=== PATIENT | female | born 2000 | race Caucasian/White ===

== ENCOUNTER → 2018-06-06 | Outpatient (CLI) | payer OTHER ==
--- NOTE | 2018-06-06 16:25 | Diagnostic Imaging Report ---
INDICATION: Elevated d-dimer, chest pain. TECHNIQUE: Grayscale with color-flow and Doppler waveform evaluation of the bilateral lower extremity deep venous systems. CORRELATION STUDY: None FINDINGS: Color and grayscale sonographic images demonstrate no intraluminal defect within the visualized portion of the common femoral, superficial femoral and/or popliteal veins to suggest thrombus formation. These vessels demonstrate normal response to compression and augmentation. No soft tissue fluid collection. IMPRESSION: 1. Negative for deep venous thrombosis of either leg. Dictated by: Dictated on workstation # [id number]
== END ==
LOC: RAD 15:13
PROVIDERS: ATTEND Internal Medicine
DX: R07.9 Chest pain, unspecified (principal); R79.1 Abnormal coagulation profile
CPT/HCPCS: 93970

== ENCOUNTER → 2018-06-07 | Outpatient (CLI) | payer OTHER | LOC: CARD 13:16 | PROVIDERS: ATTEND Internal Medicine | DX: R07.9 Chest pain, unspecified (principal); R00.0 Tachycardia, unspecified | CPT/HCPCS: 93306 ==

== ENCOUNTER → 2018-10-26 | Outpatient (CLI) | payer OTHER ==
[~2018-10-26] MED LIST: IOHEXOL 350 MG/ML 150 ML (OMNIPAQUE 350) VIAL IV ONE; NS 250 ML (IVPB) BAG IV ONE; RECEIVED CONTRAST (Hold Metformin) IV SCH
--- NOTE | 2018-10-26 09:32 | Diagnostic Imaging Report ---
PROCEDURE: CT angiography of the chest with contrast. TECHNIQUE: Multiple contiguous axial images were obtained through the chest after uneventful bolus administration of intravenous contrast. 2D reconstructed CTA MIP acquisitions were also performed. INDICATION: Chest pain, low-grade fever, and elevated d-dimer. COMPARISON: CT from 05/24/2018. FINDINGS: There is good opacification of the pulmonary arterial system. The pulmonary system appears unremarkable. No thromboemboli are identified within the central, lobar, or segmental branches. The thoracic aorta is of normal caliber. No pericardial or pleural fluid is seen. No pulmonary infiltrates are present. No nodular mass is seen. No axillary, hilar, or mediastinal lymphadenopathy is detected. The upper abdomen is unremarkable. IMPRESSION: Unremarkable CT angiogram of the chest. There is no evidence of pulmonary embolism. Dictated by: Dictated on workstation # [id number]
== END ==
LOC: RAD 08:31
PROVIDERS: ATTEND Internal Medicine
DX: R07.9 Chest pain, unspecified (principal); R79.1 Abnormal coagulation profile; R50.9 Fever, unspecified
CPT/HCPCS: 71275

== ENCOUNTER → 2021-01-29 | Outpatient (CLI) | payer OTHER ==
--- NOTE | 2021-01-29 16:34 | Diagnostic Imaging Report ---
INDICATION: survey, patient. TECHNIQUE: Multiple real-time grayscale images were obtained over the gravid uterus. COMPARISON: None during this . FINDINGS: A single live intrauterine fetus is seen measuring 20 weeks 5 days by composite measurements with sonographic EDC of 06/13/2021. The fetus is in variable presentation. Placenta is anterior with no evidence of previa. Amniotic fluid index is 12.7 cm. heart rate is 158 bpm. Cervical length is 3.9 cm. Distance from the placental tip to the internal os was 3.7 cm. The maternal adnexa were not well seen but there was no free fluid. survey was unremarkable including normal appearance of the kidneys and bladder. Normal appearance of the stomach was visualized. Intracranial ventricles appear normal. Four-chamber heart view appeared normal. Three-vessel cord and cord insertion were normal. Views of the spine were normal. Biometrical measurements are as follows: Biparietal 4.93 cm, age 21 weeks 0 days. Head circumference 18.01 cm, age 20 weeks 4 days. Abdominal circumference 15.51 cm, age 20 weeks 5 days. Femur length 3.32 cm, age 20 weeks 3 days. Sonographic estimate age: 20 weeks 5 days. Sonographic estimated date of delivery: 06/13/2021. Estimated Weight: 361 gm (+/- 53 gm). LMP percentile: 69%. heart rate: 158 beats per minute. number: 1 of 1. IMPRESSION: Single live intrauterine fetus measuring 20 weeks 5 days in size. There were no detectable abnormalities. Dictated by: Dictated on workstation # [id number]
== END ==
LOC: RAD 15:15
PROVIDERS: ATTEND Nurse Practitioner Women's Health
DX: Z34.92 Encounter for supervision of normal pregnancy, unspecified, second trimester (principal); Z3A.20 20 weeks gestation of pregnancy
CPT/HCPCS: 76805

== ENCOUNTER 2021-06-10 18:55 | Inpatient (IN) | payer OTHER ==
[2021-06-10] VITALS (9 sets, daily range): BP systolic 99–115; BP diastolic 56–82
[~2021-06-10] VITALS: Ht 167.7 cm; Wt 67.4 kg
[2021-06-10] MEDS ORDERED: TERBUTALINE INJ 1 MG/ML (BRETHINE) AMP SC PRN (19:15)
[2021-06-10] MEDS ORDERED: LIDOCAINE/EPI 2% 1:200,00 (XYLOCAINE) 20 ML VIAL INJ PRN (19:15)
[2021-06-10] MEDS ORDERED: NS IV 1000 ML 1,000 ML IV SCH (19:15)
[2021-06-10] MEDS ORDERED: PREN-142 PO (19:57)
[2021-06-10 20:01] LABS: BILIRUBIN,URINE NEGATIVE (NEGATIVE); CLARITY,URINE CLEAR; COLOR,URINE YELLOW; GLUCOSE, URINE (UA) 2+ (NEGATIVE); KETONES,URINE NEGATIVE (NEGATIVE); LEUKOCYTE ESTERASE ,URINE 1+ (NEGATIVE); NITRITE,URINE NEGATIVE (NEGATIVE); PH,URINE 5.5 (5-9); PROTEIN,URINE NEGATIVE (NEGATIVE)
[2021-06-10 20:02] LABS: BASOPHILS % (AUTO) 0 % (0-10); EOSINOPHILS # (AUTO) 0.1 10^3/uL (0.0-0.3); EOSINOPHILS % (AUTO) 1 % (0-10); HEMATOCRIT 33 % (35-52); HEMOGLOBIN 11.4 g/dL (11.5-16.0); LYMPHOCYTES # (AUTO) 1.6 10^3/uL (1.0-4.0); LYMPHOCYTES % (AUTO) 22 % (12-44); MEAN CORPUSCULAR HEMOGLOBIN 30 pg (25-34); MEAN CORPUSCULAR HGB CONC 35 g/dL (32-36); MEAN CORPUSCULAR VOLUME 85 fL (80-99); MEAN PLATELET VOLUME 12.7 fL (9.0-12.2); MONOCYTES # (AUTO) 0.5 10^3/uL (0.0-1.0); MONOCYTES % (AUTO) 7 % (0-12); NEUTROPHILS # (AUTO) 5.2 10^3/uL (1.8-7.8); NEUTROPHILS % (AUTO) 70 % (42-75); PLATELET COUNT 152 10^3/uL (130-400); WHITE BLOOD COUNT 7.5 10^3/uL (4.3-11.0)
[2021-06-10 20:10] LABS: AMORPHOUS SEDIMENT,UR FEW AMOR URATES /LPF; BACTERIA,URINE FEW /HPF
[2021-06-10] MEDS: D5 LR IV SOLUTION 1,000 ML IV SCH (20:44)
[2021-06-10] MEDS: CATHETER FLUSH 10 ML SYR IV SCH (21:28)
[2021-06-11] VITALS (75 sets, daily range): BP systolic 89–130; BP diastolic 51–84
[2021-06-11] MEDS: D5 LR IV SOLUTION 1,000 ML IV SCH ×2 (04:41→11:55)
[2021-06-11] MEDS ORDERED: OXYTOCIN PRE-MIX DRIP 500 ML IV ONE (05:41)
[2021-06-11] MEDS: CATHETER FLUSH 10 ML SYR IV SCH (05:56)
[2021-06-11] MEDS ORDERED: OXYTOCIN PRE-MIX DRIP 500 ML IV SCH ×2 (06:15→19:00)
--- NOTE | 2021-06-11 07:46 | History & Physical-OB ---
OB - Chief Complaint & HPI Date/Time Date of Admission: Date of Admission: Jun 10, 2021 at 18:55 Date seen by a Provider: Jun 11, 2021 Time Seen by a Provider: 07:45 Chief Complaint/History OB-Reason for Admission/Chief: Induction of Labor Hx : 1 Hx Para: 0 Expected Date of Delivery: Jun 17, 2021 Gestational Age in Weeks: 39 Gestational Age in Days: 0 Other reason for admission: Elective Admission Nurse Assessment Rev: Yes History of Labs O pos Antibody neg RI RPR NR HBsAg NR HIV NR GC neg GBS neg Allergies and Home Medications Allergies Coded Allergies: Sulfa (Sulfonamide Antibiotics) (Verified Allergy, Mild, Hives, 06/10/21) Home Medications Vit No.124/Iron/FA 1 Each Tablet, 1 EACH PO DAILY, (Reported) Last Action: New Order Patient Home Medication List Home Medication List Reviewed: Yes OB - History Hx of Present Care: Yes Ultrasounds: Normal mid trimester US Obstetrical Complications: None Medical Complications: None Patient Past Medical History n/a Immunizations Hepatitis A: No Hepatitis B: No OB - Admission Exam Physical Exam Vitals: Vital Signs 06/11/21 06/11/21 06:00 07:00 Temp 36.7 Pulse 71 Resp 18 B/P (MAP) 109/75 (86) Pulse Ox 99 O2 Delivery Room Air HEENT: NCAT Heart: Rhythm Normal Lungs: Clear Abdomen: Gravid Extremities: Normal Reflexes: Normal Cervical Dilatation: 2cm Effacement: 75% Station: -1 Membranes: Intact Heart Rate: 130's Accelerations: Accelerations Present Decelerations: No Decelerations Short Term Variability: Present Usp Variability: Average (6-25) Contractions on Admission: 6-10 Minutes Apart Intensity: Mild Alvarez Scoring Tool (Modified) Dilation (cm): 1-2cm (1) Effacement (%): 51-79% (2) Descent/Station: -1,0 (2) Cervix Consistency: Soft (2) Cervix Position: Anterior (2) Subtract 1 point for: Nulliparity (-1) Alvarez Score: 8 Labs Laboratory Tests Test 06/10/21 19:40 Range/Units White Blood Count 7.5 4.3-11.0 10^3/uL Red Blood Count 3.87 3.80-5.11 10^6/uL Hemoglobin 11.4 L 11.5-16.0 g/dL Hematocrit 33 L 35-52 % Mean Corpuscular Volume 85 80-99 fL Mean Corpuscular Hemoglobin 30 25-34 pg Mean Corpuscular Hemoglobin Concent 35 32-36 g/dL Red Cell Distribution Width 11.9 10.0-14.5 % Platelet Count 152 130-400 10^3/uL Mean Platelet Volume 12.7 H 9.0-12.2 fL Immature Granulocyte % (Auto) 1 % Neutrophils (%) (Auto) 70 42-75 % Lymphocytes (%) (Auto) 22 12-44 % Monocytes (%) (Auto) 7 0-12 % Eosinophils (%) (Auto) 1 0-10 % Basophils (%) (Auto) 0 0-10 % Neutrophils # (Auto) 5.2 1.8-7.8 10^3/uL Lymphocytes # (Auto) 1.6 1.0-4.0 10^3/uL Monocytes # (Auto) 0.5 0.0-1.0 10^3/uL Eosinophils # (Auto) 0.1 0.0-0.3 10^3/uL Basophils # (Auto) 0.0 0.0-0.1 10^3/uL Immature Granulocyte # (Auto) 0.1 0.0-0.1 10^3/uL Urine Color YELLOW Urine Clarity CLEAR Urine pH 5.5 5-9 Urine Specific [place] 1.020 1.016-1.022 Urine Protein NEGATIVE NEGATIVE Urine Glucose (UA) 2+ H NEGATIVE Urine Ketones NEGATIVE NEGATIVE Urine Nitrite NEGATIVE NEGATIVE Urine Bilirubin NEGATIVE NEGATIVE Urine Urobilinogen 0.2 < = 1.0 MG/DL Urine Leukocyte Esterase 1+ H NEGATIVE Urine RBC (Auto) NEGATIVE NEGATIVE Urine RBC NONE /HPF Urine WBC 5-10 H /HPF Urine Crystals PRESENT H /LPF Urine Amorphous Sediment FEW SVEN URATES H /LPF Urine Bacteria FEW H /HPF Urine Casts NONE /LPF Urine Mucus SMALL H /LPF Urine Culture Indicated YES OB - Assessment/Plan/Diagnosis Assessment Assessment: induction of labor Admission Dx 21 yo @ 39 weeks Elective IOL GBS neg Admission Status: Inpatient Order (span 2 midnights) Reason for Inpatient Admission: IOL at 39 weeks Plan Plan: Induction Induction Method: per Misoprostol Protocol GLORY BORGES DO Jun 11, 2021 07:46
[2021-06-11] MEDS ORDERED: LACTATED RINGERS 1,000 ML IV SCH (11:15)
[2021-06-11] MEDS ORDERED: fentaNYL 2 mcg/ml BUPIVA 0.125 100 ML ONE (11:27)
[2021-06-11] MEDS ORDERED: BUPIVACAINE 0.25% 30 ML (SENSORCAINE) VIAL ONE (11:58)
[2021-06-11] MEDS ORDERED: fentaNYL INJ 100 MCG/2 ML AMP ONE (11:58)
[2021-06-11] MEDS ORDERED: NALOXONE 0.4 MG/ML 1 ML (NARCAN) VIAL IV PRN (12:00)
[2021-06-11] MEDS ORDERED: fentaNYL 2 mcg/ml BUPIVA 0.125 100 ML IV SCH (12:00)
[2021-06-11] MEDS ORDERED: LACTATED RINGERS 1,000 ML IV ONE (12:00)
[2021-06-11] MEDS ORDERED: CATHETER FLUSH 10 ML SYR IV PRN (12:00)
[2021-06-11] MEDS ORDERED: LIDOCAINE/EPI 2% 1:200,00 (XYLOCAINE) 20 ML VIAL ONE (16:51)
[2021-06-11] MEDS ORDERED: TETANUS,DIPTH,PERTUSS P/F (BOOSTRIX) 0.5 ML VIAL IM ONE (19:00)
[2021-06-11] MEDS ORDERED: MEASLES,MUMPS,RUBELLA 1 EA INJ SQ ONE (19:00)
[2021-06-11] MEDS ORDERED: DIBUCAINE 1% OINTMENT 30 GM TUBE TOP PRN (19:00)
[2021-06-11] MEDS ORDERED: WITCH HAZEL(TUCKS) 40 EA JAR TOP PRN (19:00)
[2021-06-11] MEDS ORDERED: BENZOCAINE/MENTHOL (DERMOPLAST) 56 ML CAN TP PRN (19:00)
[2021-06-11] MEDS ORDERED: HYDROcodone/APAP 5 MG/325 MG (LORTAB) TAB PO PRN (19:00)
--- NOTE | 2021-06-11 19:34 | Discharge Inst-Women's Service ---
Discharge Inst-Women's Serv Depart Medication/Instructions New, Converted or Re-Newed RX: RX on Chart Final Diagnosis PPD 1 VAVD Problems Reviewed?: Yes Consults/Follow Up Additional Follow Up: Yes Orders/Referrals Dr. Borges in 6 weeks Activity Activity: Activity as Tolerated Driving Instructions: No Driving for 1 Week NO SMOKING: NO SMOKING Nothing Inside Vagina: No Douching, No [place], No Tampons Diet Discharge Diet: No Restrictions Symptoms to Report to : Bleeding Excessive, Pain Increased, Fever Over 101 Degrees F, Vaginal Bleeding Increase, Questions/Concerns For Any Problems or Questions: Contact Your Physician GLORY BORGES DO Jun 11, 2021 19:34
--- NOTE | 2021-06-11 19:34 | OB Labor & Delivery Record ---
L&D History Date of Service Date of Service: Jun 11, 2021 History Expected Date of Delivery: Jun 17, 2021 Gestational Age in Weeks: 39 Hx : 1 Hx Para: 0 Complications Events: Routine care Operative Indications (Cesarea: N/A-Vaginal Delivery Intrapartal Events: None L&D Stage1 Stage One Onset of Labor - Date: Jun 11, 2021 Monitors and Tracing Monitor Mode: External Heart Rate: 130 Station: 0 Usp Variability: Average (6-10) Short Term Variability: Present Presentation: Vertex Vital Signs VS - Last 72 Hours, by Label 06/10/21 06/10/21 06/10/21 06/10/21 19:47 19:47 20:07 20:37 Temp 36.8 36.8 Pulse 98 98 96 76 Resp 18 18 18 18 B/P (MAP) 114/75 (88) 114/76 (89) 114/82 (93) Pulse Ox 97 97 O2 Delivery Room Air Room Air Room Air Room Air 06/10/21 06/10/21 06/10/21 06/10/21 21:07 21:37 22:07 22:37 Pulse 81 84 78 78 Resp 18 18 18 18 B/P (MAP) 108/75 (86) 115/77 (90) 110/76 (87) 99/56 (70) O2 Delivery Room Air Room Air Room Air Room Air 06/10/21 06/10/21 06/11/21 06/11/21 22:53 23:53 01:05 01:54 Temp 36.1 Pulse 81 75 78 77 Resp 18 18 18 18 B/P (MAP) 100/63 (75) 109/73 (85) 111/75 (87) 116/79 (91) O2 Delivery Room Air Room Air Room Air Room Air 06/11/21 06/11/21 06/11/21 06/11/21 02:57 03:53 04:47 05:47 Temp 36.1 Pulse 74 78 76 73 Resp 18 18 18 18 B/P (MAP) 89/51 (64) 112/81 (91) 113/76 (88) 111/78 (89) O2 Delivery Room Air Room Air Room Air Room Air 06/11/21 06/11/21 06/11/21 06/11/21 06:00 06:15 06:30 06:45 Temp 36.7 Pulse 72 68 83 92 Resp 18 18 18 18 B/P (MAP) 118/81 (93) 118/77 (91) 111/72 (85) 107/72 (84) O2 Delivery Room Air Room Air Room Air Room Air 06/11/21 06/11/21 06/11/21 06/11/21 07:00 07:15 07:30 07:45 Temp 36.7 Pulse 71 81 67 79 Resp 18 18 18 18 B/P (MAP) 109/75 (86) 115/79 (91) 122/82 (95) 115/80 (92) Pulse Ox 99 100 100 100 O2 Delivery Room Air Room Air Room Air Room Air 06/11/21 06/11/21 06/11/21 06/11/21 08:00 08:15 08:30 08:45 Pulse 87 82 72 71 Resp 18 18 18 18 B/P (MAP) 125/79 (94) 117/81 (93) 116/78 (91) 116/80 (92) Pulse Ox 98 100 98 98 O2 Delivery Room Air Room Air Room Air Room Air 06/11/21 06/11/21 06/11/21 06/11/21 09:00 09:15 09:30 09:45 Temp 36.9 Pulse 79 80 80 75 Resp 18 18 18 18 B/P (MAP) 116/80 (92) 116/82 (93) 120/81 (94) 109/75 (86) Pulse Ox 97 96 97 97 O2 Delivery Room Air Room Air Room Air Room Air 06/11/21 06/11/21 06/11/21 06/11/21 10:00 10:15 10:30 10:45 Pulse 75 77 79 95 Resp 18 18 18 18 B/P (MAP) 110/77 (88) 118/80 (93) 116/74 (88) 118/84 (95) Pulse Ox 96 97 98 99 O2 Delivery Room Air Room Air Room Air Room Air 06/11/21 06/11/21 06/11/21 06/11/21 11:00 11:15 11:30 11:45 Pulse 71 75 76 70 Resp 18 18 18 18 B/P (MAP) 119/79 (92) 116/70 (85) 123/78 (93) 114/75 (88) Pulse Ox 100 100 100 100 O2 Delivery Room Air Room Air Room Air Room Air 06/11/21 06/11/21 06/11/21 06/11/21 12:00 12:15 12:20 12:23 Pulse 71 77 80 83 Resp 18 18 18 18 B/P (MAP) 116/73 (87) 116/75 (89) 108/71 (83) 103/67 (79) Pulse Ox 100 100 100 100 O2 Delivery Room Air Room Air Room Air Room Air 06/11/21 06/11/21 06/11/21 06/11/21 12:26 12:30 12:34 12:37 Pulse 79 77 77 80 Resp 18 18 18 18 B/P (MAP) 103/65 (78) 107/62 (77) 108/64 (79) 109/63 (78) Pulse Ox 100 100 100 100 O2 Delivery Room Air Room Air Room Air Room Air 06/11/21 12:40 Pulse 77 Resp 18 B/P (MAP) 115/69 (84) Pulse Ox 100 O2 Delivery Room Air Rupture of Membranes Spontaneous Ruture of Membrane: No Amniotic Membrane Rupture Time: 804 Amniotic Membrane Fluid Desc.: Clear Vaginal Bleeding Description: Normal Show Progress/Notes Patient admitted last night for cervical ripening, misoprostol given 100 mcg x 1 dose, and contractions began to become regular. She had AROM performed this AM followed by pitocin augmentation and an epidural was placed. She progressed to complete and +2 station. L&D Stage2 Stage Two Stage II Date: Jun 11, 2021 Monitors and Tracing Monitor Mode: External Heart Rate: 130 Monitor Accelerations: Uniform Monitor Decelerations: Variable Building Insulation Supervisor Variability: Average (6-10) Short Term Variability: Present Position: Right Occiput Anterior Presentation: Vertex Signs of Distress by FHT Signs of Distress Due to heart rate decision was for for Low vacuum extraction. Cord Descript/Complications Cord Vessel Description: 3 Vessels Complications Kiwi was applied with gentle extension pop off occurred and mother was able to progress delivery from there. Delivery Type Delivery Method: Spontaneous Vaginal Anterior Shoulder: Left Episiotomy/Perineal Laceration Laceraction(s)/Extensions: Yes Episiotomy Description: Midline Degree (describe repair) midline episiotomy repaired using 3-0 and 2-0 vicryl suture in usual fashion. Condition of Infant Delivery 1 minute Comment: 9 5 minute Comment: 9 Notes weight 8lbs 3 oz live male Condition of Infant Condition of : Living Exam: No Observed Abnormalities Resuscitation Resuscitation: N/A - Spontaneous Resp L&D Stage3 Stage Three Stage III Date: Jun 11, 2021 Pictocin Pitocin Administration mu/min: 4 Pitocin ml/hr: 4 Pitocin Administration Comment: 30 mu wide open after delivery of placenta Placenta Delivery Placenta Delivery: Spontaneous Delivery Summary Summary Estimated blood loss (mL): 350 Attending at delivery: Glory Borges DO Condition of Delivery Examined: Cervix Examined, Uterus Explored Post Hemorrhage: No Condition of Mother stable Condition of Infant (s) stable GLORY BORGES DO Jun 11, 2021 19:34
[2021-06-11] MEDS ORDERED: BENZ78AE5 TP (19:36)
[2021-06-11] MEDS ORDERED: DCS100C PO (19:36)
[2021-06-11] MEDS ORDERED: DIBU30OI TOP (19:36)
[2021-06-11] MEDS ORDERED: ACHD5005 PO (19:36)
[2021-06-11] MEDS ORDERED: IBUP-844 PO (19:36)
[2021-06-11] MEDS ORDERED: FERR325T24 PO (19:36)
[2021-06-11] MEDS ORDERED: CATHETER FLUSH 10 ML SYR IV SCH (22:00)
[2021-06-11] MEDS: DOCUSATE SODIUM 100 MG (COLACE) CAP PO SCH (23:09)
[2021-06-11] MEDS: IBUPROFEN 600 MG (MOTRIN) TAB PO SCH (23:10)
[2021-06-12 04:10] VITALS: BP 100/67
[2021-06-12 06:11] LABS: BASOPHILS % (AUTO) 0 % (0-10); EOSINOPHILS # (AUTO) 0.1 10^3/uL (0.0-0.3); EOSINOPHILS % (AUTO) 1 % (0-10); HEMATOCRIT 34 % (35-52); HEMOGLOBIN 11.3 g/dL (11.5-16.0); LYMPHOCYTES # (AUTO) 1.3 10^3/uL (1.0-4.0); LYMPHOCYTES % (AUTO) 11 % (12-44); MEAN CORPUSCULAR HEMOGLOBIN 29 pg (25-34); MEAN CORPUSCULAR HGB CONC 33 g/dL (32-36); MEAN CORPUSCULAR VOLUME 88 fL (80-99); MEAN PLATELET VOLUME 12.4 fL (9.0-12.2); MONOCYTES # (AUTO) 0.8 10^3/uL (0.0-1.0); MONOCYTES % (AUTO) 7 % (0-12); NEUTROPHILS # (AUTO) 10.2 10^3/uL (1.8-7.8); NEUTROPHILS % (AUTO) 81 % (42-75); PLATELET COUNT 135 10^3/uL (130-400); WHITE BLOOD COUNT 12.6 10^3/uL (4.3-11.0)
[2021-06-12] MEDS ORDERED: PRENATAL VITAMIN 1 EA TAB PO SCH (07:00)
[2021-06-12] MEDS ORDERED: FERROUS SULF 325 MG (IRON) TAB PO SCH (09:00)
[2021-06-12] MEDS: DOCUSATE SODIUM 100 MG (COLACE) CAP PO SCH ×2 (09:07→23:27)
[2021-06-12 12:00] VITALS: BP 112/70
[2021-06-12] MEDS: IBUPROFEN 600 MG (MOTRIN) TAB PO SCH ×2 (12:09→23:27)
[2021-06-12 16:30] VITALS: BP 115/75
--- NOTE | 2021-06-12 17:35 | Postpartum Progress Note ---
Note Note Day # 1 Subjective: Patient is without complaints. Ambulating, voiding. Tolerating a regular diet without nausea or vomiting. Normal lochia. Pain is well controlled with oral pain medications. Objective: Physical Exam: General - Alert and oriented, no apparent distress Abdomen - Soft, appropriately tender to palpation, non-distended, fundus firm at umbilicus Extremities - no edema, negative Eduarda's bilaterally Assessment: post- day # 1, status post vaginal delivery. Recovering well, hemodynamically stable Plan: Routine care. Encourage breast feeding. Encourage ambulation. Ferrous sulfate supplementation. Plan for discharge tomorrow Vitals - Labs Vital Signs - I&O Vital Signs Date Time Temp Pulse Resp B/P (MAP) Pulse Ox O2 Delivery O2 Flow Rate FiO2 06/12/21 04:10 37.0 74 16 100/67 (78) Room Air 06/11/21 23:30 36.9 79 16 104/64 (77) Room Air 06/11/21 21:15 37.1 86 16 106/70 (82) Room Air 06/11/21 20:00 101 16 106/62 (77) Room Air 06/11/21 19:45 37.3 96 18 113/61 (78) Room Air 06/11/21 19:30 93 18 104/62 (76) Room Air 06/11/21 19:13 84 18 110/63 (79) Room Air 06/11/21 18:58 79 18 130/72 (91) Room Air 06/11/21 18:43 86 18 126/76 (93) Room Air 06/11/21 18:28 37.0 82 18 125/78 (94) Room Air 06/11/21 18:13 94 18 126/73 (90) Room Air 06/11/21 17:58 92 18 119/64 (82) Room Air 06/11/21 17:41 96 20 130/69 (89) Non Rebreather 15.00 I & O 06/12/21 07:00 Intake Total 3000 ml Output Total 1300 ml Balance 1700 ml Labs Laboratory Tests 06/12/21 05:52: White Blood Count 12.6H, Red Blood Count 3.85, Hemoglobin 11.3L, Hematocrit 34L, Mean Corpuscular Volume 88, Mean Corpuscular Hemoglobin 29, Mean Corpuscular Hemoglobin Concent 33, Red Cell Distribution Width 12.3, Platelet Count 135, Mean Platelet Volume 12.4H, Immature Granulocyte % (Auto) 1, Neutrophils (%) (Auto) 81H, Lymphocytes (%) (Auto) 11L, Monocytes (%) (Auto) 7, Eosinophils (%) (Auto) 1, Basophils (%) (Auto) 0, Neutrophils # (Auto) 10.2H, Lymphocytes # (Auto) 1.3, Monocytes # (Auto) 0.8, Eosinophils # (Auto) 0.1, Basophils # (Auto) 0.0, Immature Granulocyte # (Auto) 0.1 Microbiology 06/10/21 Urine Culture - Final, Complete Lactobacillus species CHRISTI ARNOLD MED STUDENT Jun 12, 2021 17:35
[2021-06-12 20:00] VITALS: BP 112/73
[2021-06-13 01:30] VITALS: BP 96/62
[2021-06-13 08:37] VITALS: BP 108/70
--- NOTE | 2021-06-13 10:09 | Postpartum Progress Note ---
Note Note Day # 2 Subjective: Patient is without complaints. Ambulating, voiding. Tolerating a regular diet without nausea or vomiting. Normal lochia. Pain is well controlled with oral pain medications. Objective: Physical Exam: General - Alert and oriented, no apparent distress Abdomen - Soft, appropriately tender to palpation, non-distended, fundus firm at umbilicus Extremities - no edema, negative Eduarda's bilaterally Assessment: PPD 2 NVD Anemia of Plan: Routine care. Encourage breast feeding. Encourage ambulation. Ferrous sulfate supplementation. Plan for discharge today Vitals - Labs Vital Signs - I&O Vital Signs Date Time Temp Pulse Resp B/P (MAP) Pulse Ox O2 Delivery O2 Flow Rate FiO2 06/13/21 01:30 36.3 85 18 96/62 (73) 98 06/12/21 20:00 36.6 80 18 112/73 (86) 100 06/12/21 16:30 36.8 83 16 115/75 (88) 99 Room Air 06/12/21 12:00 36.9 93 16 112/70 (84) 100 Room Air Labs Microbiology 06/10/21 Urine Culture - Final, Complete Lactobacillus species GLORY BORGES DO Jun 13, 2021 10:09
--- NOTE | 2021-06-13 13:12 | Anesthesia-Regional Post-Op ---
Regional Patient Condition Mental Status: Alert, Oriented x3 Circulation: Same as Pre-Op Headache: Absent Sensation: Full Recovery Motor Block: Absent Post Op Complications Complications None Follow Up Care/Instructions Patient Instructions None needed. Anesthesia/Patient Condition Patient is doing well, no complaints, stable vital signs, no apparent adverse anesthesia problems. No complications reported per nursing. GENEVIEVE BENITEZ CRNA Jun 13, 2021 13:12
== END 2021-06-13 13:20 | disposition home or self-care (01) | DRG 807 ==
LOC: LDRP 18:55
PROVIDERS: ADMIT Obstetrics & Gynecology; ATTEND Obstetrics & Gynecology
PROC: 10E0XZZ Delivery of Products of Conception, External Approach (ICD-10-PCS; principal; 2021-06-11)
PROC: 0W8NXZZ Division of Female Perineum, External Approach (ICD-10-PCS; 2021-06-11)
PROC: 3E0DXGC Introduction of Other Therapeutic Substance into Mouth and Pharynx, External Approach (ICD-10-PCS; 2021-06-11)
DX: O99.02 Anemia complicating childbirth (principal); Z37.0 Single live birth; D64.9 Anemia, unspecified; Z3A.39 39 weeks gestation of pregnancy; Z88.2 Allergy status to sulfonamides
CPT/HCPCS: 36415; 81000; 85025; 86850; 86900; 86901; 87088

== ENCOUNTER → 2022-12-22 | Outpatient (CLI) | payer OTHER ==
[~2022-12-22] MED LIST changes: +ACHD5005 PO; +BENZ78AE5 TP; +DIBU30OI TOP; +DOCU-239 PO; +FERR325T24 PO; +IBUP-844 PO; -IOHEXOL 350 MG/ML 150 ML (OMNIPAQUE 350) VIAL IV ONE; -NS 250 ML (IVPB) BAG IV ONE; +PREN-142 PO; -RECEIVED CONTRAST (Hold Metformin) IV SCH
--- NOTE | 2022-12-22 13:11 | Diagnostic Imaging Report ---
INDICATION: Routine care. TECHNIQUE: Multiple real-time grayscale images were obtained over the gravid uterus. COMPARISON: None FINDINGS: There is a single live fetus in a transverse presentation head to maternal right. heart rate was recorded at 155 bpm. Placenta is posterior and slightly low lying in position with the tip approximately 3 cm from the internal os. Amniotic fluid index is 10.1 cm. Cervical length is 7.0 cm. kidneys, bladder and stomach are unremarkable. brain is unremarkable. There is a four-chamber heart. There is a three-vessel cord with normal insertion. spine is unremarkable. Biometrical measurements are as follows: Biparietal 4.61 cm, age 20 weeks 0 days. Head circumference 17.52 cm, age 20 weeks 1 days. Abdominal circumference 14.10 cm, age 19 weeks 4 days. Femur length 3.03 cm, age 19 weeks 3 days. Sonographic estimate age: 19 weeks 6 days. Sonographic estimated date of delivery: 05/12/2023. Estimated Weight: 296 gm (+/- 43 gm). LMP percentile: 15%. heart rate: 155 beats per minute. number: 1 of 1. IMPRESSION: Single live IUP 19 weeks 6 days gestational age. Estimated date of confinement sonographically is 05/12/2023. Dictated by: Dictated on workstation # [id number]
== END ==
LOC: RAD 09:51
PROVIDERS: ATTEND Nurse Practitioner Women's Health
DX: Z34.02 Encounter for supervision of normal first pregnancy, second trimester (principal); Z3A.19 19 weeks gestation of pregnancy
CPT/HCPCS: 76805

== ENCOUNTER 2023-04-29 15:41 | Outpatient (CLI) | payer OTHER ==
[~2023-04-29] VITALS: Ht 167.5 cm; Wt 67.9 kg
[2023-04-29 16:07] VITALS: BP 130/80
[2023-04-29 16:20] LABS: BILIRUBIN,URINE NEGATIVE (NEGATIVE); CLARITY,URINE CLEAR; COLOR,URINE YELLOW; GLUCOSE, URINE (UA) TRACE (NEGATIVE); KETONES,URINE NEGATIVE (NEGATIVE); LEUKOCYTE ESTERASE ,URINE 1+ (NEGATIVE); NITRITE,URINE NEGATIVE (NEGATIVE); PH,URINE 6.5 (5-9); PROTEIN,URINE NEGATIVE (NEGATIVE)
[2023-04-29 16:33] LABS: BACTERIA,URINE TRACE /HPF
[2023-04-29 17:02] VITALS: BP 130/80
[2023-04-29 17:07] VITALS: BP 113/72
[2023-04-29 18:55] VITALS: BP 113/72
--- NOTE | 2023-05-01 08:36 | Physician Query-Final Dx ---
CINTHIA,05/01/23 0836: Clinic Account Progress/Dx Physician Query: Please give diagnosis Please include # weeks gestation Date of Service Apr 29, 2023 at 15:41 GLORY BORGES DO 05/01/23 1058: Clinic Account Progress/Dx DIAGNOSIS: Diagnosis 38 week IUP Irregular contractions CINTHIA,NovMay 01, 2023 08:36 GLORY BORGES DO May 01, 2023 10:58
== END 2023-04-29 18:55 | disposition home or self-care (01) ==
LOC: WSo 15:41 → LDRP 15:43 → WSo 18:55
PROVIDERS: ATTEND Obstetrics & Gynecology
DX: O62.9 Abnormality of forces of labor, unspecified (principal); Z3A.38 38 weeks gestation of pregnancy
CPT/HCPCS: 81000; 87088; 99213

== ENCOUNTER 2023-05-05 00:01 | Inpatient (IN) | payer OTHER ==
[~2023-05-05] VITALS: Ht 167 cm; Wt 66.9 kg
[2023-05-05] VITALS (55 sets, daily range): BP systolic 100–128; BP diastolic 55–91
[2023-05-05 01:48] LABS: CLARITY,URINE CLEAR; COLOR,URINE YELLOW; PROTEIN,URINE NEGATIVE (NEGATIVE)
[2023-05-05 01:49] LABS: BACTERIA,URINE NEGATIVE /HPF; BILIRUBIN,URINE NEGATIVE (NEGATIVE); GLUCOSE, URINE (UA) NEGATIVE (NEGATIVE); KETONES,URINE NEGATIVE (NEGATIVE); LEUKOCYTE ESTERASE ,URINE 1+ (NEGATIVE); NITRITE,URINE NEGATIVE (NEGATIVE); WBC,URINE 0-2 /HPF
[2023-05-05] MEDS ORDERED: D5 LR IV SOLUTION 1,000 ML IV ONE (02:11)
[2023-05-05] MEDS: D5 LR IV SOLUTION 1,000 ML IV SCH ×2 (02:27→09:50)
[2023-05-05 02:52] LABS: BASOPHILS % (AUTO) 0 % (0-10); EOSINOPHILS # (AUTO) 0.1 10^3/uL (0.0-0.3); EOSINOPHILS % (AUTO) 1 % (0-10); HEMATOCRIT 35 % (35-52); LYMPHOCYTES # (AUTO) 2.2 10^3/uL (1.0-4.0); LYMPHOCYTES % (AUTO) 22 % (12-44); MEAN CORPUSCULAR HEMOGLOBIN 28 pg (25-34); MEAN CORPUSCULAR HGB CONC 34 g/dL (32-36); MEAN CORPUSCULAR VOLUME 83 fL (80-99); MEAN PLATELET VOLUME 11.7 fL (9.0-12.2); MONOCYTES # (AUTO) 0.7 10^3/uL (0.0-1.0); MONOCYTES % (AUTO) 7 % (0-12); NEUTROPHILS # (AUTO) 6.9 10^3/uL (1.8-7.8); NEUTROPHILS % (AUTO) 69 % (42-75); PLATELET COUNT 146 10^3/uL (130-400)
--- NOTE | 2023-05-05 07:36 | History & Physical-OB ---
OB - Chief Complaint & HPI Date/Time Date of Admission: Date of Admission: May 05, 2023 at 01:55 Date seen by a Provider: May 05, 2023 Time Seen by a Provider: 07:30 Chief Complaint/History OB-Reason for Admission/Chief: Onset of Labor Hx : 2 Hx Para: 1 Expected Date of Delivery: May 10, 2023 Gestational Age in Weeks: 39 Gestational Age in Days: 2 Admission Nurse Assessment Rev: Yes History of Labs O pos Antibody neg RI RPR NR HBsAg NR GC neg GBS neg Allergies and Home Medications Allergies Coded Allergies: Sulfa (Sulfonamide Antibiotics) (Verified Allergy, Mild, Hives, 06/10/21) Patient Home Medication List Home Medication List Reviewed: Yes Vit No.124/Iron/FA ( Vitamin Tablet) 1 Each Tablet, 1 EACH PO DAILY, (Reported) Entered as Reported by: FLORENCIA BEARD on 06/10/211956 Discontinued Medications Benzocaine/Menthol (Dermoplast Pain Relieving [place]) 78 Gm Aerosol, 0 EA TP UD PRN for PAIN- SEE INSTRUCTIONS Discontinued Reason: No Longer Taking Prescribed by: GLORY BORGES on 06/11/211935 Dibucaine (Dibucaine) 30 Gm Oint, 0 GM TOP UD PRN for PAIN- SEE INSTRUCTIONS Discontinued Reason: No Longer Taking Prescribed by: GLORY BORGES on 06/11/211935 Docusate Sodium (Dok) 100 Mg Capsule, 100 MG PO BID PRN for CONSTIPATION-1ST LINE Discontinued Reason: No Longer Taking Prescribed by: GLORY BORGES on 06/11/211935 Ferrous Sulfate (Ferosul) 325 Mg Tablet, 325 MG PO DAILY Discontinued Reason: No Longer Taking Prescribed by: GLORY BORGES on 06/11/211935 Hydrocodone Bit/Acetaminophen (HYDROcodone/APAP 5 MG/325 MG TAB) 1 Tab Tab, 1 EA PO Q4H PRN for PAIN-MODERATE (5-7) Discontinued Reason: No Longer Taking Prescribed by: GLORY BORGES on 06/11/211935 Ibuprofen (Ibu) 600 Mg Tablet, 600 MG PO Q6H Discontinued Reason: No Longer Taking Prescribed by: GLORY BORGES on 06/11/211935 OB - History Hx of Present Care: Yes Ultrasounds: Normal mid trimester US Obstetrical Complications: None Medical Complications: None Obstetrical History Hx : 2 Hx Para: 1 Patient Past Medical History n/a Social History/Family History Alcohol Use: Denies Use Recreational Drug Use: No 2nd Hand Smoke Exposure: No Immunizations Hepatitis A: No Hepatitis B: No OB - Admission Exam Physical Exam Vitals: Vital Signs 05/05/23 04:37 Temp 36.6 Pulse 81 Resp 17 B/P (MAP) 118/70 (86) Pulse Ox 98 O2 Delivery Room Air HEENT: NCAT Heart: Rhythm Normal Lungs: Clear Abdomen: Gravid Extremities: Normal Reflexes: Normal Cervical Dilatation: 4cm Effacement: 100% Station: 0 Membranes: Intact Heart Rate: 130's Accelerations: Accelerations Present Decelerations: No Decelerations Short Term Variability: Present Marketing Support Specialist Variability: Average (6-25) Contractions on Admission: 6-10 Minutes Apart Intensity: Firm Labs Laboratory Tests Test 05/05/23 00:15 05/05/23 02:30 Range/Units Urine Color YELLOW Urine Clarity CLEAR Urine pH 6.0 5-9 Urine Specific [place] 1.010 L 1.016-1.022 Urine Protein NEGATIVE NEGATIVE Urine Glucose (UA) NEGATIVE NEGATIVE Urine Ketones NEGATIVE NEGATIVE Urine Nitrite NEGATIVE NEGATIVE Urine Bilirubin NEGATIVE NEGATIVE Urine Urobilinogen 0.2 < = 1.0 MG/DL Urine Leukocyte Esterase 1+ H NEGATIVE Urine RBC (Auto) NEGATIVE NEGATIVE Urine RBC NONE /HPF Urine WBC 0-2 /HPF Urine Crystals NONE /LPF Urine Bacteria NEGATIVE /HPF Urine Casts NONE /LPF Urine Mucus NEGATIVE /LPF Urine Culture Indicated NO White Blood Count 10.0 4.3-11.0 10^3/uL Red Blood Count 4.22 3.80-5.11 10^6/uL Hemoglobin 12.0 11.5-16.0 g/dL Hematocrit 35 35-52 % Mean Corpuscular Volume 83 80-99 fL Mean Corpuscular Hemoglobin 28 25-34 pg Mean Corpuscular Hemoglobin Concent 34 32-36 g/dL Red Cell Distribution Width 12.6 10.0-14.5 % Platelet Count 146 130-400 10^3/uL Mean Platelet Volume 11.7 9.0-12.2 fL Immature Granulocyte % (Auto) 1 % Neutrophils (%) (Auto) 69 42-75 % Lymphocytes (%) (Auto) 22 12-44 % Monocytes (%) (Auto) 7 0-12 % Eosinophils (%) (Auto) 1 0-10 % Basophils (%) (Auto) 0 0-10 % Neutrophils # (Auto) 6.9 1.8-7.8 10^3/uL Lymphocytes # (Auto) 2.2 1.0-4.0 10^3/uL Monocytes # (Auto) 0.7 0.0-1.0 10^3/uL Eosinophils # (Auto) 0.1 0.0-0.3 10^3/uL Basophils # (Auto) 0.0 0.0-0.1 10^3/uL Immature Granulocyte # (Auto) 0.1 0.0-0.1 10^3/uL Syphilis Total Antibody Negative Negative OB - Assessment/Plan/Diagnosis Assessment Assessment: active labor Admission Dx 23 yo @ 39 weeks Active labor GBS neg Admission Status: Inpatient Order (span 2 midnights) Reason for Inpatient Admission: 23 yo @ 39 weeks Active labor GBS neg Plan Plan: Expectant Management GLORY BORGES DO May 05, 2023 07:36
[2023-05-05] MEDS ORDERED: OXYTOCIN PRE-MIX DRIP 500 ML IV SCH ×2 (07:45→15:00)
[2023-05-05] MEDS ORDERED: fentaNYL 2 mcg/ml BUPIVA 0.125 100 ML ONE (08:00)
[2023-05-05] MEDS ORDERED: LACTATED RINGERS 1,000 ML IV ONE (08:00)
[2023-05-05] MEDS ORDERED: ONDANSETRON 4 MG/2 ML (SDV) Z0FRAN IV PRN (10:00)
[2023-05-05] MEDS ORDERED: METOCLOPRAMIDE INJ 10 MG/2 ML (REGLAN) IV PRN (10:00)
[2023-05-05] MEDS ORDERED: fentaNYL 2 mcg/ml BUPIVA 0.125 100 ML EPI SCH (10:00)
[2023-05-05] MEDS ORDERED: diphenhydrAMINE 50 MG/ML INJ (BENADRYL) IV PRN (10:00)
[2023-05-05] MEDS ORDERED: NALOXONE 0.4 MG/ML 1 ML (NARCAN) VIAL IV PRN ×3 (10:00→15:00)
[2023-05-05] MEDS ORDERED: LACTATED RINGERS 1,000 ML IV SCH (10:00)
[2023-05-05] MEDS ORDERED: LIDOCAINE 1% INJ 10 ML VIAL ONE (14:28)
--- NOTE | 2023-05-05 14:55 | OB Labor & Delivery Record ---
L&D History Date of Service Date of Service: May 05, 2023 History Expected Date of Delivery: May 10, 2023 Gestational Age in Weeks: 39 Hx : 2 Hx Para: 1 Complications Events: Routine care Operative Indications (Cesarea: N/A-Vaginal Delivery Intrapartal Events: None L&D Stage1 Stage One Onset of Labor - Date: May 05, 2023 Monitors and Tracing Monitor Mode: External Heart Rate: 125 Monitor Decelerations: Variable Station: -1 Senior Living Variability: Average (6-10) Short Term Variability: Present Vital Signs VS - Last 72 Hours, by Label 05/05/23 05/05/23 05/05/23 05/05/23 00:18 02:07 02:15 04:37 Temp 36.8 36.6 36.6 Pulse 79 76 76 81 Resp 18 17 17 B/P (MAP) 115/75 (88) 110/73 (85) 118/70 (86) Pulse Ox 98 98 98 O2 Delivery Room Air Room Air Room Air 05/05/23 05/05/23 05/05/23 05/05/23 08:21 09:25 09:28 09:30 Temp 37.3 Pulse 82 86 92 Resp 18 18 18 B/P (MAP) 114/75 (88) 114/76 (89) 117/79 (92) Pulse Ox 99 99 O2 Delivery Room Air Room Air Room Air 05/05/23 05/05/23 05/05/23 05/05/23 09:34 09:38 09:40 09:43 Pulse 91 79 89 86 Resp 18 18 18 18 B/P (MAP) 115/78 (90) 111/69 (83) 111/75 (87) 100/58 (72) Pulse Ox 100 100 100 O2 Delivery Room Air Room Air Room Air Room Air 05/05/23 05/05/23 05/05/23 05/05/23 09:45 09:49 09:51 09:55 Pulse 84 86 95 84 Resp 18 18 18 18 B/P (MAP) 108/66 (80) 105/67 (80) 109/74 (86) 103/65 (78) Pulse Ox 98 97 97 O2 Delivery Room Air Room Air Room Air Room Air 6/9/23 6/9/23 6/9/23 6/9/23 09:58 10:00 10:03 10:06 Pulse 92 85 97 91 Resp 18 18 18 18 B/P (MAP) 105/66 (79) 105/68 (80) 112/68 (83) 117/73 (88) Pulse Ox 98 98 O2 Delivery Room Air Room Air Room Air Room Air 05/05/23 05/05/23 05/05/23 05/05/23 10:10 10:12 10:15 10:18 Pulse 94 93 101 95 Resp 18 18 18 18 B/P (MAP) 112/76 (88) 120/77 (91) 115/77 (90) 116/78 (91) Pulse Ox 98 98 99 O2 Delivery Room Air Room Air Room Air Room Air 05/05/23 10:21 Pulse 103 Resp 18 B/P (MAP) 118/69 (85) O2 Delivery Room Air Rupture of Membranes Spontaneous Ruture of Membrane: Yes Amniotic Membrane Rupture Time: 0751 Amniotic Membrane Fluid Desc.: Clear Vaginal Bleeding Description: Normal Show Induction/Anesthesia Epidural Cath Placement - Time: 928 Progress/Notes Patient admitted in active labor. AROM performed and epidural placed. Patient then augmented with IV pitocin to max dose of 6 mu, she then progressed to complete and + 2 station L&D Stage2 Stage Two Stage II Date: May 05, 2023 Monitors and Tracing Monitor Mode: External Heart Rate: 125 Monitor Decelerations: Variable Senior Living Variability: Average (6-10) Short Term Variability: Present Position: Right Occiput Anterior Presentation: Vertex Cord Descript/Complications Cord Vessel Description: 3 Vessels Delivery Type Infant Delivery Method: Spontaneous Vaginal Anterior Shoulder: Left Episiotomy/Perineal Laceration Laceraction(s)/Extensions: No Condition of Delivery 1 minute Comment: 9 5 minute Comment: 9 Condition of Infant Condition of : Living Exam: No Observed Abnormalities Resuscitation Resuscitation: N/A - Spontaneous Resp L&D Stage3 Stage Three Stage III Date: May 05, 2023 Pictocin Pitocin Administration mu/min: 6 Pitocin ml/hr: 6 Pitocin Administration Comment: 30 mu wide open after delivery of placenta Placenta Delivery Placenta Delivery: Spontaneous Delivery Summary Summary Estimated blood loss (mL): 200 Attending at delivery: Glory Borges DO Condition of Delivery Examined: Cervix Examined, Uterus Explored Post Hemorrhage: No Condition of Mother stable Condition of (s) stable GLORY BORGES DO May 05, 2023 14:55
[2023-05-05] MEDS ORDERED: DIBUCAINE 1% OINTMENT 28 GM TUBE TOP PRN (15:00)
[2023-05-05] MEDS ORDERED: HYDROcodone/APAP 5 MG/325 MG (LORTAB) TAB PO PRN (15:00)
[2023-05-05] MEDS ORDERED: WITCH HAZEL(TUCKS) 40 EA JAR TOP PRN (15:00)
[2023-05-05] MEDS ORDERED: BENZOCAINE/MENTHOL (DERMOPLAST) 56 ML CAN TP PRN (15:00)
[2023-05-05] MEDS ORDERED: TETANUS,DIPTH,PERTUSS P/F (BOOSTRIX) 0.5 ML VIAL IM ONE (15:00)
[2023-05-05] MEDS ORDERED: MEASLES,MUMPS,RUBELLA 1 EA INJ SQ ONE (15:00)
[2023-05-05] MEDS: IBUPROFEN 600 MG (MOTRIN) TAB PO SCH ×2 (16:37→21:52)
[2023-05-05] MEDS: DOCUSATE SODIUM 100 MG (COLACE) CAP PO SCH (21:53)
[2023-05-05] MEDS ORDERED: CATHETER FLUSH 10 ML SYR IV SCH (22:00)
[2023-05-06 01:52] VITALS: BP 116/77
[2023-05-06 03:19] VITALS: BP 98/64
[2023-05-06] MEDS: IBUPROFEN 600 MG (MOTRIN) TAB PO SCH ×2 (03:19→08:51)
[2023-05-06] MEDS ORDERED: PRENATAL VITAMIN 1 EA TAB PO SCH (07:00)
[2023-05-06 07:31] LABS: BASOPHILS % (AUTO) 0 % (0-10); EOSINOPHILS # (AUTO) 0.1 10^3/uL (0.0-0.3); EOSINOPHILS % (AUTO) 1 % (0-10); HEMATOCRIT 33 % (35-52); HEMOGLOBIN 11.3 g/dL (11.5-16.0); LYMPHOCYTES # (AUTO) 1.6 10^3/uL (1.0-4.0); LYMPHOCYTES % (AUTO) 15 % (12-44); MEAN CORPUSCULAR HEMOGLOBIN 29 pg (25-34); MEAN CORPUSCULAR HGB CONC 34 g/dL (32-36); MEAN CORPUSCULAR VOLUME 85 fL (80-99); MEAN PLATELET VOLUME 12.2 fL (9.0-12.2); MONOCYTES # (AUTO) 0.6 10^3/uL (0.0-1.0); MONOCYTES % (AUTO) 5 % (0-12); NEUTROPHILS # (AUTO) 8.7 10^3/uL (1.8-7.8); NEUTROPHILS % (AUTO) 78 % (42-75); PLATELET COUNT 135 10^3/uL (130-400); WHITE BLOOD COUNT 11.1 10^3/uL (4.3-11.0)
[2023-05-06] MEDS: DOCUSATE SODIUM 100 MG (COLACE) CAP PO SCH (08:50)
[2023-05-06 08:53] VITALS: BP 115/70
[2023-05-06] MEDS ORDERED: FERROUS SULF 325 MG (IRON) TAB PO SCH (09:00)
--- NOTE | 2023-05-06 10:10 | Anesthesia-Regional Post-Op ---
Regional Patient Condition Mental Status: Alert, Oriented x3 Circulation: Same as Pre-Op Headache: Absent Sensation: Full Recovery Motor Block: Absent Post Op Complications Complications None Follow Up Care/Instructions Patient Instructions None needed. Anesthesia/Patient Condition Patient is doing well, no complaints, stable vital signs, no apparent adverse anesthesia problems. No complications reported per nursing. PORTILLO NUNEZ CRNA May 06, 2023 10:10
--- NOTE | 2023-05-06 10:18 | Postpartum Progress Note ---
Note Note Day # 1 Subjective: Patient is without complaints. Ambulating, voiding. Tolerating a regular diet without nausea or vomiting. Normal lochia. Pain is well controlled with oral pain medications. Objective: Physical Exam: General - Alert and oriented, no apparent distress Abdomen - Soft, appropriately tender to palpation, non-distended, fundus firm at umbilicus Extremities - no edema, negative Eduarda's bilaterally Assessment PPD 1 NVD Acute blood loss anemia Plan: Routine care. Encourage breast feeding. Encourage ambulation. Ferrous sulfate supplementation. Plan for discharge today Vitals - Labs Vital Signs - I&O Vital Signs Date Time Temp Pulse Resp B/P (MAP) Pulse Ox O2 Delivery O2 Flow Rate FiO2 05/06/23 08:53 36.4 100 16 115/70 (85) 98 Room Air 05/06/23 03:19 36.5 76 16 98/64 (75) 99 Room Air 05/06/23 01:52 36.7 77 16 116/77 (90) 99 Room Air 05/05/23 21:53 36.7 86 16 104/63 (77) 98 Room Air 05/05/23 17:38 95 18 118/62 (80) Room Air 05/05/23 17:08 90 18 108/55 (72) Room Air 05/05/23 16:38 90 18 113/74 (87) Room Air 05/05/23 16:32 91 18 115/75 (88) Room Air 05/05/23 16:16 87 18 113/79 (90) Room Air 05/05/23 16:01 91 18 113/77 (89) Room Air 05/05/23 15:46 37.3 78 18 117/78 (91) Room Air 05/05/23 15:31 37.2 80 18 117/77 (90) Room Air 05/05/23 15:16 37.3 76 18 117/78 (91) Room Air 05/05/23 15:02 83 18 122/76 (91) Room Air 05/05/23 14:57 37.2 05/05/23 14:47 94 18 128/91 (103) Room Air 05/05/23 14:32 88 18 126/75 (92) 100 Room Air 05/05/23 14:27 37.1 05/05/23 14:18 88 18 128/76 (93) 100 Room Air 05/05/23 14:03 82 18 118/77 (91) 100 Room Air 05/05/23 13:50 37.6 77 18 118/75 (89) 100 Room Air 05/05/23 13:32 88 18 117/78 (91) 99 Room Air 05/05/23 13:30 37.2 05/05/23 13:18 80 18 115/73 (87) 97 Room Air 05/05/23 13:02 75 18 109/70 (83) 98 Room Air 05/05/23 12:47 79 18 111/70 (84) 97 Room Air 05/05/23 12:32 75 18 112/70 (84) 97 Room Air 05/05/23 12:17 88 18 108/69 (82) 98 Room Air 05/05/23 12:02 94 18 112/70 (84) 97 Room Air 05/05/23 11:48 81 18 107/67 (80) 98 Room Air 05/05/23 11:35 36.8 05/05/23 11:32 82 18 114/71 (85) 98 Room Air 05/05/23 11:18 98 18 105/66 (79) 98 Room Air 05/05/23 11:02 85 18 111/67 (82) 98 Room Air 05/05/23 10:47 87 18 106/65 (79) 98 Room Air 05/05/23 10:42 37.1 05/05/23 10:30 101 18 113/71 (85) 98 Room Air 05/05/23 10:27 100 18 102/60 (74) Room Air 05/05/23 10:24 96 18 115/66 (82) 98 Room Air 05/05/23 10:21 103 18 118/69 (85) Room Air 05/05/23 10:18 95 18 116/78 (91) 99 Room Air I & O 05/06/23 07:00 Intake Total 2500 ml Balance 2500 ml Labs Laboratory Tests 05/06/23 07:00: White Blood Count 11.1H, Red Blood Count 3.94, Hemoglobin 11.3L, Hematocrit 33L, Mean Corpuscular Volume 85, Mean Corpuscular Hemoglobin 29, Mean Corpuscular Hemoglobin Concent 34, Red Cell Distribution Width 12.7, Platelet Count 135, Mean Platelet Volume 12.2, Immature Granulocyte % (Auto) 1, Neutrophils (%) (Auto) 78H, Lymphocytes (%) (Auto) 15, Monocytes (%) (Auto) 5, Eosinophils (%) (Auto) 1, Basophils (%) (Auto) 0, Neutrophils # (Auto) 8.7H, Lymphocytes # (Auto) 1.6, Monocytes # (Auto) 0.6, Eosinophils # (Auto) 0.1, Basophils # (Auto) 0.0, Immature Granulocyte # (Auto) 0.1 GLORY BORGES DO May 06, 2023 10:18
--- NOTE | 2023-05-06 10:19 | Discharge Inst-Women's Service ---
Discharge Inst-Women's Serv Depart Medication/Instructions New, Converted or Re-Newed RX: Transmitted to Pharmacy Final Diagnosis PPD 1 NVD Problems Reviewed?: Yes Consults/Follow Up Additional Follow Up: Yes Orders/Referrals Dr. Borges in 6 weeks Activity Activity: Activity as Tolerated Driving Instructions: No Driving for 1 Week NO SMOKING: NO SMOKING Nothing Inside Vagina: No Douching, No [place], No Tampons Diet Discharge Diet: No Restrictions Symptoms to Report to : Bleeding Excessive, Pain Increased, Fever Over 101 Degrees F, Vaginal Bleeding Increase, Questions/Concerns For Any Problems or Questions: Contact Your Physician GLORY BORGES DO May 06, 2023 10:19
[2023-05-06] MEDS ORDERED: DOCU100C37 PO (10:20)
[2023-05-06] MEDS ORDERED: FERR325T24 PO (10:20)
[2023-05-06] MEDS ORDERED: ACHD5005 PO (10:20)
[2023-05-06] MEDS ORDERED: BENZ78AE5 TP (10:20)
[2023-05-06] MEDS ORDERED: IBUP-844 PO (10:20)
[2023-05-06 13:05] VITALS: BP 117/72
[2023-05-06 17:58] VITALS: BP 117/72
== END 2023-05-06 18:41 | disposition home or self-care (01) | DRG 806 ==
LOC: WSo 00:01 → LDRP 00:04 → WSo 01:54 → LDRP 01:55
PROVIDERS: ADMIT Obstetrics & Gynecology; ATTEND Obstetrics & Gynecology
PROC: 10E0XZZ Delivery of Products of Conception, External Approach (ICD-10-PCS; principal; 2023-05-05)
PROC: 10907ZC Drainage of Amniotic Fluid, Therapeutic from Products of Conception, Via Natural or Artificial Opening (ICD-10-PCS; 2023-05-05)
DX: O90.81 Anemia of the puerperium (principal); D62 Acute posthemorrhagic anemia; Z37.0 Single live birth; Z3A.39 39 weeks gestation of pregnancy; Z28.310 Unvaccinated for COVID-19
CPT/HCPCS: 36415; 81000; 85025; 86780; 86850; 86900; 86901; 99213